=== PATIENT | male | born 1995 | race Caucasian/White ===

== ENCOUNTER 2021-09-23 15:43 | Emergency (ER) | payer OTHER ==
[~2021-09-23] VITALS: Ht 172.7 cm; Wt 79.5 kg
[2021-09-23] MEDS ORDERED: KETOROLAC TROMETHAMINE 30 MG/ML VIAL IM ONE (18:00)
[2021-09-23] MEDS ORDERED: IBUP-2070 PO (19:32)
[2021-09-23 20:45] VITALS: BP 126/76
== END 2021-09-23 21:06 | disposition home or self-care (01) ==
LOC: EMS 15:47
DX: M25.521 Pain in right elbow (principal); M25.531 Pain in right wrist; F17.210 Nicotine dependence, cigarettes, uncomplicated; W01.0XXA Fall on same level from slipping, tripping and stumbling without subsequent striking against object, initial encounter; Y93.89 Activity, other specified; Y92.89 Other specified places as the place of occurrence of the external cause; Y99.8 Other external cause status
CPT/HCPCS: 99284; 73030; 73080; 73110; 29125; 96372; J1885; 99283

== ENCOUNTER 2023-04-04 23:19 | Emergency (ER) | payer MEDICAID, OTHER ==
[~2023-04-04] VITALS: Ht 172.7 cm; Wt 75.0 kg
[~2023-04-04 23:19] MED LIST: IBUP-1492 PO
[2023-04-04] MEDS ORDERED: FLUORESCEIN SODIUM 1 MG STRIP ONE (23:35)
[2023-04-04] MEDS ORDERED: PROPARACAINE HCL 0.5% 15 ML OPHTHALMIC SOLUTION ONE (23:39)
[2023-04-04 23:41] VITALS: BP 132/77; PULSE 89; RESP 15; TEMP 98.3
[2023-04-04] MEDS: PROPARACAINE HCL 0.5% 15 ML OPHTHALMIC SOLUTION OD ONE (23:50)
[2023-04-04] MEDS ORDERED: TOBR5DRO44 OD (23:57)
== END 2023-04-05 02:40 | disposition home or self-care (01) ==
LOC: EMS 23:19
DX: S05.01XA Injury of conjunctiva and corneal abrasion without foreign body, right eye, initial encounter (principal); F17.210 Nicotine dependence, cigarettes, uncomplicated; X58.XXXA Exposure to other specified factors, initial encounter; Y93.89 Activity, other specified; Y92.89 Other specified places as the place of occurrence of the external cause; Y99.8 Other external cause status
CPT/HCPCS: 99283

== ENCOUNTER 2024-02-01 18:18 | Inpatient (IN) | payer OTHER ==
[~2024-02-01] VITALS: Ht 170.2 cm; Wt 79.5 kg
[~2024-02-01 18:18] MED LIST changes: +TOBR5DRO44 OD
[2024-02-01 19:23] LABS: BASOPHILS % (AUTO) 1.1 % (0.0-2.0); EOSINOPHILS % (AUTO) 2.2 % (1.0-6.0); HEMATOCRIT 47.1 % (41-53); HEMOGLOBIN 15.7 g/dL (13.5-17.5); LYMPHOCYTES # (AUTO) 2.5 K/uL (1.0-4.8); LYMPHOCYTES % (AUTO) 26.7 % (22.0-44.0); MEAN CORPUSCULAR HEMOGLOBIN 31.9 pg (26.0-34.0); MEAN CORPUSCULAR HGB CONC 33.4 G/dL (31.0-37.0); MEAN CORPUSCULAR VOLUME 95 fL (80-100); MONOCYTES # (AUTO) 0.9 K/uL (0.1-1.0); MONOCYTES % (AUTO) 10.1 % (2.0-9.0); NEUTROPHILS # (AUTO) 5.5 K/uL (1.8-7.7); NEUTROPHILS % (AUTO) 59.9 % (40.0-70.0); PLATELET COUNT (AUTO) 276 K/uL (150-450); RED BLOOD CELL COUNT(AUTO) 4.94 MIL/uL (4.50-5.90); RED CELL DISTRIBUTION WIDTH 13.1 % (11.5-14.5); WHITE BLOOD COUNT (AUTO) 9.2 K/uL (4.5-11.0)
[2024-02-01 19:33] LABS: ANION GAP 5 mmol/L (8-16); CALCIUM, TOTAL 8.5 mg/dL (8.8-10.5); CARBON DIOXIDE 33 mmol/L (22-29); CHLORIDE 103 mmol/L (98-107); CREATININE 1.05 mg/dL (0.60-1.30); GLOMERULAR FILTR. RATE CALC > 60 mL/min (>60); GLUCOSE,RANDOM 77 mg/dL (70-110); POTASSIUM 3.8 mmol/L (3.5-5.1); SODIUM SERUM 141 mmol/L (136-145); UREA NITROGEN, BLOOD 14 mg/dL (7-18)
[2024-02-01 19:39] LABS: ALANINE AMINOTRANSFERASE 22 U/L (12-78); ALBUMIN 3.4 g/dL (3.4-5.0); ALKALINE PHOSPHATASE 91 U/L (46-116); ASPARTATE AMINOTRANSFERASE 13 U/L (15-37); BILIRUBIN,TOTAL 0.2 mg/dL (0.1-1.0); TOTAL PROTEIN, SERUM 7.3 g/dL (6.4-8.2)
[2024-02-01 19:41] LABS: ALCOHOL, BLOOD (SERUM) < 3 mg/dL (0-10)
[2024-02-01] MEDS: ONDANSETRON 4 MG TABLET PO ONE (19:48)
[2024-02-01] MEDS ORDERED: ONDANSETRON HCL 4 MG/2 ML VIAL IVP PRN (20:45)
[2024-02-01] MEDS ORDERED: ZOLPIDEM TARTRATE 5 MG TABLET PO PRN (20:45)
[2024-02-01] MEDS ORDERED: MAGNESIUM HYDROXIDE SUSPENSION 30 ML UDCUP PO PRN (20:45)
[2024-02-02 01:00] VITALS: BP 125/77; PULSE 62; RESP 20; TEMP 98; O2SAT 96
[2024-02-02 02:04] LABS: APPEARANCE,URINE CLEAR (CLEAR); BILIRUBIN,URINE NEGATIVE (NEGATIVE); COLOR,URINE YELLOW (YELLOW); GLUCOSE, URINE (UA) NEGATIVE (NEGATIVE); KETONES,URINE NEGATIVE (NEGATIVE); LEUKOCYTE ESTERASE ,URINE NEGATIVE (NEGATIVE); NITRATE,URINE NEGATIVE (NEGATIVE); OCCULT BLOOD,URINE NEGATIVE (NEGATIVE); PROTEIN,URINE NEGATIVE (NEGATIVE); SPECIFIC GRAVITIY, URINE 1.024 (1.003-1.030)
[2024-02-02 02:13] LABS: ALCOHOL, URINE DRUG SCREEN NEGATIVE (NEGATIVE); AMPHET/METH SCREEN,URINE POSITIVE (NEGATIVE); BARBITURATE SCREEN, URINE NEGATIVE (NEGATIVE); BENZODIAZEPINES SCREEN,URINE NEGATIVE (NEGATIVE); CANNABINOID SCREEN,URINE NEGATIVE (NEGATIVE); COCAINE SCREEN,URINE NEGATIVE (NEGATIVE); METHADONE SCREEN, URINE NEGATIVE (NEGATIVE); OPIATE SCREEN,URINE NEGATIVE (NEGATIVE); PHENCYCLIDINE SCREEN,URINE NEGATIVE (NEGATIVE)
[2024-02-02 05:39] VITALS: BP 129/89; PULSE 67; RESP 18; TEMP 98.4; O2SAT 97
[2024-02-02 08:20] VITALS: BP 132/80; PULSE 84; RESP 19; TEMP 98.4; O2SAT 96
[2024-02-02] MEDS: FAMOTIDINE 20 MG TABLET PO SCH (08:54)
[2024-02-02 19:52] VITALS: BP 137/80; PULSE 84; RESP 18; TEMP 98.1; O2SAT 99
[2024-02-03 05:00] VITALS: BP 130/83; PULSE 72; RESP 19; TEMP 98; O2SAT 99
[2024-02-03 07:56] VITALS: BP 119/74; PULSE 74; RESP 18; TEMP 98.1; O2SAT 96
[2024-02-03] MEDS: ACETAMINOPHEN 325 MG TABLET PO PRN (08:09)
[2024-02-03 19:48] VITALS: BP 106/56; PULSE 80; RESP 18; TEMP 98.1; O2SAT 96
== END 2024-02-03 20:20 | DRG 897 ==
LOC: EMS 18:22 → EDH 20:41 → 6S 02-02 00:42
PROVIDERS: ADMIT Internal Medicine; ATTEND Internal Medicine
DX: F19.139 Other psychoactive substance abuse with withdrawal, unspecified (principal); F11.23 Opioid dependence with withdrawal; Z87.891 Personal history of nicotine dependence; Z79.899 Other long term (current) drug therapy
CPT/HCPCS: 80048; 80076; 80307; 81003; 85025; 99285; G0378; G0480; J2405; Q0162